=== PATIENT | male | born 1945 | race Caucasian/White ===

== ENCOUNTER 2019-03-26 02:24 | Emergency (ER) | payer OTHER ==
[2019-03-26 02:48] LABS: #Eosinphils 0.3 thou/uL (0.0-0.7); #Lymphocytes 2.5 thou/uL (1.20-3.40); #Monocytes 0.6 thou/uL (0.11-0.59); #Neutrophils 2.8 thou/uL (1.40-6.50); %Basophils 0.4 % (0.0-1.0); %Eosinophils 4.7 % (0.0-10.0); %Lymphocytes 40.5 % (21.0-51.0); %Monocytes 9.4 % (0.0-10.0); %Neutrophils 45.1 % (42.0-75.0); Hemoglobin 12.8 g/dL (14.0-18.0); Mean Corpuscular HGB CONC 35.4 g/dL (32.0-36.0); Mean Corpuscular Hemoglobin 31.1 pg (27.0-31.0); Mean Corpuscular Volume 87.8 fL (78.0-98.0); Mean Platelet Volume 7.4 fL (7.4-10.4); Platelet Count 137 thou/uL (130-400); RBC Distribution Width 12.8 % (11.5-14.5); Red Blood Cell (RBC) Count 4.12 mill/uL (4.70-6.10); White Blood Cell (WBC) Count 6.2 thou/uL (4.8-10.8)
[2019-03-26 02:55] LABS: INR-International Normal Ratio 0.9; PTT 26.1 SEC (22.9-36.1); Prothrombin Time 12.2 SEC (12.0-14.7)
[2019-03-26 03:04] LABS: ALT (SGPT) 13 U/L (8-55); AST (SGOT) 12 U/L (5-34); Albumin 3.6 g/dL (3.4-4.8); Alkaline Phosphatase 56 U/L (40-150); Anion Gap 13 mmol/L (10-20); BUN (Urea Nitrogen) 16 mg/dL (8.4-25.7); Bilirubin, Total 0.3 mg/dL (0.2-1.2); Calc. Creatinine Clearance 0 mL/min (70-130); Carbon Dioxide 23 mmol/L (23-31); Chloride 105 mmol/L (98-107); Estimated GFR-MDRD Greater than 90; Globulin 2.6 g/dL (2.4-3.5); Glucose 157 mg/dL (83-110); Potassium 4.2 mmol/L (3.5-5.1); Protein, Total 6.2 g/dL (5.8-8.1); Sodium 137 mmol/L (136-145)
[2019-03-26] MEDS ORDERED: Aspirin 325 MG TAB ONE (03:23)
[2019-03-26 06:17] LABS: Troponin I 0.015 ng/mL (< 0.028)
--- NOTE | 2019-03-26 09:12 | CT ---
PRELIMINARY REPORT/[facility]/EMERGENCY AFTER HOURS PROCEDURE: Addendum created by Ever Fernández MD on 03/26/2019 2:49 AM Central Time ([place] & [place]) THIS REPORT CONTAI NS FINDINGS THAT MAY BE CRITICAL TO PATIENT CARE. The findings were verbally communicated via telepho ne conference with ALEX CAO at 2:49 AM CDT on 03/26/2019. The findings were acknowledged and unde rstood. Initial Report created on 03/26/2019 2:45 AM Central Time ([place] & [place]) EXAM: CT Head Without Contrast EXAM DATE/TIME: 03/26/2019 2:29 AM CLINICAL HISTORY: 73 years old, male; Numbness / parasthesia and visual disturbance; Left; Patient HX: 73 y/o m present s to ED via EMS transport for stroke-like symptoms. PT informs that he had experienced neck pain thro ughout the day yesterday, assuming that the pain was due to sleeping in an unusual position. PT was prompted to call 911 when he began experiencing L sided facial paresthesias approx 1 hour earlier, at 0030. Per EMS, PT alert and oriented x 3, PT hypertensive with PT describing his bl d pressure reading for EMS as higher than his baseline HTN. On additional EMS assessment, PT with L s ided facial droop, no unilateral weakness, nrml speech. TECHNIQUE: Imaging protocol: Computed tomography images of the head without contrast. Other technique: STROKE PROTOCOL was implemented. COMPARISON: No relevant prior studies available. FINDINGS: Brain: Scattered areas of hypoattenuation, likely chronic small vessel ischemic change, demyelination , or gliosis. No mass, hemorrhage, or acute infarction. Ventricles: Normal. Bones/joints: Normal. Sinuses: Minimal ethmoid sinus disease. Mastoid air cells: Normal as visualized. Soft tissues: Unremarkable. Vasculature: Atherosclerotic vascular calcifications. IMPRESSION: No acute intracranial abnormality. ASSESSMENT: ASPECTS ([place] Stroke Program Early CT Score) is 10. Thank you for allowing us to participate in the care of your patient. Dictated and Authenticated by: Ever Fernández MD 03/26/2019 2:45 AM Central Time ([place] & [place]) FINAL REPORT HEAD CT WITHOUT CONTRAST: HISTORY: Level I stroke. Last seen normal around 12:30 in the morning. FINDINGS: No parenchymal hemorrhage. No extra-axial hematoma. No midline shift. Brain volume, age-appropriate. Cortical celeste-white matter differentiation is preserved. Minimal white matter hypodensities due to ch ronic small vessel ischemic change. Intact calvarium. Adequate aeration of sinuses and mastoid air ce lls. IMPRESSION: This report is in agreement with the preliminary report by Mary. No acute intracranial process. POS: ISABELLA
--- NOTE | 2019-03-26 09:28 | CT ---
PRELIMINARY REPORT/[facility]/EMERGENCY AFTER HOURS PROCEDURE: Addendum created by Ever Fernández MD on 03/26/2019 3:00 AM Central Time ([place]) THIS REPORT CONTAI NS FINDINGS THAT MAY BE CRITICAL TO PATIENT CARE. The findings were verbally communicated via telepho ne conference with ALEX CAO at 3:00 AM CDT on 03/26/2019. The findings were acknowledged and unde rstood. Initial Report created on 03/26/2019 2:55 AM Central Time ([place] & [place]) EXAM: CT Angiography Head With Contrast EXAM DATE/TIME: 03/26/2019 2:29 AM CLINICAL HISTORY: 73 years old, male; Numbness and visual disturbance; Type not specified; Patient HX: 73 y/o m present s to ED via EMS transport for stroke-like symptoms. PT informs that he had experienced neck pain thro ughout the day yesterday, assuming that the pain was due to sleeping in an unusual position. PT was prompted to call 911 when he began experiencing L sided facial paresthesias approx 1 hour earlier, at 0030. Per EMS, PT alert and oriented x 3, PT hypertensive with PT describing his bl d pressure reading for EMS as higher than his baseline HTN. On additional EMS assessment, PT with L s ided facial droop, no unilateral weakness, nrml speech. TECHNIQUE: Imaging protocol: Computed tomographic angiography images of the head with intravenous contrast using CT angiography protocol. Coronal and sagittal reformatted images were created and reviewed. 3D rende ring: MIP reconstructed images were created and reviewed. COMPARISON: No relevant prior studies available. FINDINGS: Right internal carotid artery: Mild calcified atherosclerotic disease of the cavernous posteriorly ri ght internal carotid artery, without significant luminal narrowing or occlusion. Right anterior cerebral artery: Unremarkable. No occlusion or significant stenosis. No aneurysm. Right middle cerebral artery: Unremarkable. No occlusion or significant stenosis. No aneurysm. Right posterior cerebral artery: Unremarkable. No occlusion or significant stenosis. No aneurysm. Right vertebral artery: Unremarkable. No occlusion or significant stenosis. No aneurysm. Left internal carotid artery: Mild calcified atherosclerotic disease of the cavernous portion of the left internal carotid artery, without significant narrowing or occlusion. Left anterior cerebral artery: Unremarkable. No occlusion or significant stenosis. No aneurysm. Left middle cerebral artery: Unremarkable. No occlusion or significant stenosis. No aneurysm. Left posterior cerebral artery: Unremarkable. No occlusion or significant stenosis. No aneurysm. Left vertebral artery: Unremarkable. No occlusion or significant stenosis. No aneurysm. Basilar artery: Unremarkable. No occlusion or significant stenosis. No aneurysm. HEAD: Sinuses: Mild ethmoid sinus disease. IMPRESSION: No acute abnormality. Thank you for allowing us to participate in the care of your patient. Dictated and Authenticated by: Ever Fernández MD 03/26/2019 2:55 AM Central Time ([place]) Addendum created by Ever Fernández MD on 03/26/2019 3:10 AM Central Time ([place]) The findings were received by ALEX Andrew at 3:09 AM CDT on 03/26/2019. The findings were acknowledged and underst ood. Initial Report created on 03/26/2019 3:06 AM Central Time ([place]) EXAM: CT Neck Without Contrast EXAM DATE/TIME: 03/26/2019 2:29 AM CLINICAL HISTORY: 73 years old, male; Numbness / parasthesia and visual disturbance; Left; Patient HX: 73 y/o m present s to ED via EMS transport for stroke-like symptoms. PT informs that he had experienced neck pain thro ughout the day yesterday, assuming that the pain was due to sleeping in an unusual position. PT was prompted to call 911 when he began experiencing L sided facial paresthesias approx 1 hour earlier, at 0030. Per EMS, PT alert and oriented x 3, PT hypertensive with PT describing his bl d pressure reading for EMS as higher than his baseline HTN. On additional EMS assessment, PT with L s ided facial droop, no unilateral weakness, nrml speech. TECHNIQUE: Imaging protocol: Axial computed tomography images of the neck without contrast. COMPARISON: No relevant prior studies available. FINDINGS: Limitations: Evaluation of the mid common carotid artery segments is limited secondary to motion charline fact. VASCULATURE: Right common carotid artery: Mixed atherosclerotic disease of the mid right common carotid artery, ca using less than 50% luminal narrowing. Right internal carotid artery: Unremarkable extracranial segment. No stenosis. No dissection or occlu galina. Right external carotid artery: Unremarkable. No occlusion or stenosis of the origin. Right vertebral artery: Unremarkable. No stenosis. No dissection or occlusion. Left common carotid artery: Unremarkable. No stenosis. No dissection or occlusion. Left internal carotid artery: Unremarkable extracranial segment. No stenosis. No dissection or occlus ion. Left external carotid artery: Unremarkable. No occlusion or stenosis of the origin. Left vertebral artery: Unremarkable. No stenosis. No dissection or occlusion. Aorta: Conventional thoracic aortic great vessel branch anatomy. NECK: Bones/joints: No acute fracture. Soft tissues: Normal. No significant soft tissue swelling. IMPRESSION: No acute abnormality. Study is somewhat limited secondary to motion artifact, specifically at the mid common carotid artery segment level. COMMENT: Reference per NASCET criteria for degree of stenosis: Mild: less than 50% stenosis. Moderate: 50-69% stenosis. Severe: 70-94% stenosis. Near occlusion: 95-99% stenosis. Thank you for allowing us to participate in the care of your patient. Dictated and Authenticated by: Ever Fernández MD 03/26/2019 3:06 AM Central Time ([place] & [place]) FINAL REPORT CT ANGIOGRAM HEAD CT ANGIOGRAM NECK: Date: 03/26/19 HISTORY: Stroke. Left-sided weakness. Left-sided facial droop. Loss of vision in left eye. COMPARISON: None. TECHNIQUE: CT angiogram of the head and neck are performed in the axial plane. Three-dimensional reformatted laury ges are submitted for interpretation. FINDINGS: Postcontrast head CT does not demonstrate any pathologic enhancement of the brain parenchyma. Bilateral orbits are unremarkable. Soft tissue neck structures are unremarkable. There are no masses in the oral cavity. Midline fatty raphae of the tongue is preserved. There is degenerative change throughout the cervical spine with Grade I anterolisthesis of C2 upon C3 . Varying degrees of central canal stenosis and neural foraminal narrowing. Limited evaluation due to technique. CT ANGIOGRAM: Visualized aorta has an overall normal appearance. Bilateral cervical carotid arteries have appropria te enhancement and luminal diameter. Bilateral cervical vertebral bodies have appropriate enhancement and luminal diameter. Bilateral subclavian arteries are unremarkable. CT ANGIOGRAM HEAD: Intracranial internal carotid arteries have appropriate enhancement and luminal diameter. There is at herosclerosis without significant narrowing involving distal cavernous carotid and paraclinoid segmen ts bilaterally. Anterior and posterior circulation demonstrate appropriate enhancement and luminal diameter of the A1 , M1, A2, and proximal segments, as well as the proximal MCA branches. Intracranial vertebral arterie s supply a normal appearing basilar artery. Bilateral P1 segments are unremarkable. Visualized PICA a rtery origins are unremarkable. IMPRESSION: This report is in agreement with the preliminary report by [facility]. No evidence of vascular occlusion wi th regards to the [place]. No significant stenosis based upon NASCET criteria with regards t o the cervical carotid arteries. POS: TALISHA
[2019-03-26 09:34] LABS: Troponin I Less than 0.010 ng/mL (< 0.028)
[2019-03-26] MEDS ORDERED: ISOVUE-370 76%-LOCM 1 ML ONE (13:47)
== END 2019-03-26 09:21 ==
LOC: ERS 02:24
DX: R29.810 Facial weakness (principal); N40.0 Benign prostatic hyperplasia without lower urinary tract symptoms; E11.9 Type 2 diabetes mellitus without complications; I10 Essential (primary) hypertension; K21.9 Gastro-esophageal reflux disease without esophagitis; F41.9 Anxiety disorder, unspecified; Z79.899 Other long term (current) drug therapy; Z79.84 Long term (current) use of oral hypoglycemic drugs; Z79.82 Long term (current) use of aspirin
CPT/HCPCS: 36415; 36416; 70450; 70496; 70498; 80053; 82550; 84484; 85025; 85610; 85730; 93005; Q9966